=== PATIENT | male | born 1960 | race Caucasian/White ===

== ENCOUNTER 2016-05-14 21:03 | Emergency (ER) | payer OTHER ==
[~2016-05-14] VITALS: Ht 188 cm; Wt 85.0 kg
[2016-05-14 21:08] VITALS: BP 134/71; PULSE 67; RESP 18; TEMP 98.1; O2SAT 100
[2016-05-14] MEDS ORDERED: SODIUM CHLOR 0.9% 1000 ML INJ 1,000 ML IV ONE (21:15)
[2016-05-14] MEDS ORDERED: SODIUM CHLORIDE 0.9% FLUSH 5 ML FLUSH IVF PRN (21:15)
[2016-05-14] MEDS ORDERED: ONDANSETRON HCL 4 MG/2 ML VIAL IVP ONE (21:15)
--- NOTE | 2016-05-14 21:17 | PD ---
HPI Chief Complaint: Syncope/Near-Syncope Time Seen by Provider: 21:08 Travel History International Travel<30 days: No Contact w/Intl Traveler<30days: No Traveled to known affect area: No History of Present Illness HPI 55-year-old male presents via EMS for evaluation of nausea and lightheadedness. He reports that he was sitting in a pizza restaurant this afternoon with some friends but he wasn't hungry. He was feeling nauseous. He drank some Sprite but continued to feel nauseous so he walked outside. He felt lightheaded like he was going to pass out, he had some diaphoresis, and so he sat down. At this point in time he does feel better, continues to endorse mild lightheadedness and nausea but otherwise is asymptomatic. He denies any episodes of chest pain , palpitation, shortness of breath, abdominal pain, fevers or chills, diarrhea, headache. He denies any recent changes in diet. Denies any vertigo sensation. Denies any history of cardiac disease. He reports a history of high cholesterol for which she is prescribed niacin. Denies any history of hypertension, diabetes. He has no other complaints at this time. [facility] Past Medical History Narrative Medical Hyperlipidemia High Cholesterol: Yes Medical other: Yes (stress test 05/2015) Tetanus Vaccination: Unknown Influenza Vaccination: No Social History Alcohol Use: Yes (occasional ) Tobacco Use: No Substance Use: No Allergies-Medications (Allergen,Severity, Reaction): Coded Allergies: No Known Allergies (Unverified , 05/14/16) Reported Meds & Prescriptions Reported Meds & Active Scripts Active Zofran (Ondansetron HCl) 4 Mg Tab 4 Mg PO Q6HR PRN Review of Systems Except as stated in HPI: all other systems reviewed are Neg Physical Exam Narrative GENERAL: Pleasant well-developed well-nourished male in no acute distress resting comfortably in hospital bed. Vital signs reviewed. SKIN: Warm and dry. HEAD: Atraumatic. Normocephalic. EYES: Pupils equal and round extraocular muscles are intact. No scleral icterus. No injection or drainage. No nystagmus. ENT: No nasal bleeding or discharge. Mucous membranes pink and moist. NECK: Trachea midline. No JVD. CARDIOVASCULAR: Regular rate and rhythm. No murmur appreciated. RESPIRATORY: No accessory muscle use. Clear to auscultation. Breath sounds equal bilaterally. No crackles no wheezing. GASTROINTESTINAL: Abdomen soft, non-tender, nondistended. No guarding. MUSCULOSKELETAL: No obvious deformities. No edema. NEUROLOGICAL: Awake and alert. No obvious cranial nerve deficits. Motor grossly within normal limits. Normal speech. Data Data Last Documented VS Vital Signs Date Time Temp Pulse Resp B/P Pulse Ox O2 Delivery O2 Flow Rate FiO2 05/14/16 21:24 80 16 97 Room Air 05/14/16 21:08 98.1 134/71 Orders Electrocardiogram (05/14/16 21:15) Basic Metabolic Panel (Bmp) (05/14/16 21:15) Complete Blood Count With Diff (05/14/16 21:15) Magnesium (Mg) (05/14/16 21:15) Ecg Monitoring (05/14/16 21:15) Iv Access Insert/Monitor (05/14/16 21:15) Oximetry (05/14/16 21:15) Ondansetron Inj (Zofran Inj) (05/14/16 21:15) Sodium Chloride 0.9% Flush (Ns Flush) (05/14/16 21:15) Sodium Chlor 0.9% 1000 Ml Inj (Ns 1000 M (05/14/16 21:15) Orthostatic Vital Signs (05/14/16 21:19) Metoclopramide Inj (Reglan Inj) (05/14/16 22:45) Labs Laboratory Tests Test 05/14/16 21:20 White Blood Count 15.8 TH/MM3 Red Blood Count 5.11 MIL/MM3 Hemoglobin 16.7 GM/DL Hematocrit 47.3 % Mean Corpuscular Volume 92.6 FL Mean Corpuscular Hemoglobin 32.6 PG Mean Corpuscular Hemoglobin 35.3 % Concent Red Cell Distribution Width 13.2 % Platelet Count 223 TH/MM3 Mean Platelet Volume 8.6 FL Neutrophils (%) (Auto) 88.2 % Lymphocytes (%) (Auto) 7.0 % Monocytes (%) (Auto) 4.1 % Eosinophils (%) (Auto) 0.6 % Basophils (%) (Auto) 0.1 % Neutrophils # (Auto) 13.9 TH/MM3 Lymphocytes # (Auto) 1.1 TH/MM3 Monocytes # (Auto) 0.6 TH/MM3 Eosinophils # (Auto) 0.1 TH/MM3 Basophils # (Auto) 0.0 TH/MM3 CBC Comment DIFF FINAL Differential Comment Sodium Level 142 MEQ/L Potassium Level 4.3 MEQ/L Chloride Level 105 MEQ/L Carbon Dioxide Level 30.4 MEQ/L Anion Gap 7 MEQ/L Blood Urea Nitrogen 22 MG/DL Creatinine 1.26 MG/DL Estimat Glomerular Filtration 60 ML/MIN Rate Random Glucose 123 MG/DL Calcium Level 9.1 MG/DL Magnesium Level 2.1 MG/DL MDM Medical Decision Making Medical Screen Exam Complete: Yes Emergency Medical Condition: Yes Medical Record Reviewed: Yes Interpretation(s) EKG sinus rhythm, normal intervals, isolated T-wave inversion in V1, no ST changes, no Brugada, no [id number], no prolonged QT Differential Diagnosis Nausea, gastroenteritis, dehydration, hypoglycemia, electrolyte abnormality, vertigo, subarachnoid hemorrhage, pulmonary embolism, acute coronary syndrome, arrhythmia Narrative Course 55-year-old male who developed nausea while sitting in a pizza restaurant, became lightheaded when walking outside. He feels somewhat better now. He had no syncope, no vertigo, no chest pain or shortness of breath or palpitations. His vital signs are stable on examination. IV established, basic lab work has been ordered, the patient will be placed on ECG monitoring, 12-lead EKG was obtained. The patient was given IV fluids and Zofran. The patient had one episode of vomiting shortly after arrival prior to Zofran administration. He vomited up his lunch which he reports was salad from a salad bar at a [employer] restaurant. I suspect early gastroenteritis as the etiology of this patient's symptoms. He continues to deny any abdominal pain or diarrhea or chest pain. 2235: Upon reexamination the patient does feel significantly improved, slight residual nausea. No additional vomiting, no new symptoms. The patient's labwork is been reviewed. He has mild leukocytosis, BUN mildly elevated at when he 2. Plan is to discharge the patient home with Zofran to use as needed for nausea, advance diet slowly as tolerated. He is encouraged to return for any new or worsening symptoms such as chest pain, severe headache, abdominal pain, intractable vomiting. He is agreeable with this plan. Diagnosis Primary Impression: Gastroenteritis Additional Instructions: Zofran as needed for nausea. Slowly advance diet as tolerated. Follow-up with primary care physician as needed. Return for any new or worsening symptoms. Med/Other Pt SpecificInfo: Prescription(s) given Scripts Ondansetron (Zofran)4 Mg Tab4 Mg PO Q6HR PRN (NAUSEA OR VOMITING) #20 TAB Ref 0 Prov:Lilo Bush MD 05/14/16 Disposition: 01 DISCHARGE HOME Condition: Stable Gary Gibbons May 14, 2016 21:17
[2016-05-14 21:24] VITALS: PULSE 80; RESP 16; O2SAT 97
[2016-05-14 21:30] VITALS: BP_SYST 123; BP_SYST 132; BP_SYST 145; BP_DIAS 70; BP_DIAS 74; BP_DIAS 77; RESP 16
--- NOTE | 2016-05-14 21:51 | PD ---
Data Data Last Documented VS Vital Signs Date Time Temp Pulse Resp B/P Pulse Ox O2 Delivery O2 Flow Rate FiO2 05/14/16 21:24 80 16 97 Room Air 05/14/16 21:08 98.1 134/71 Orders Electrocardiogram (05/14/16 21:15) Basic Metabolic Panel (Bmp) (05/14/16 21:15) Complete Blood Count With Diff (05/14/16 21:15) Magnesium (Mg) (05/14/16 21:15) Ecg Monitoring (05/14/16 21:15) Iv Access Insert/Monitor (05/14/16 21:15) Oximetry (05/14/16 21:15) Ondansetron Inj (Zofran Inj) (05/14/16 21:15) Sodium Chloride 0.9% Flush (Ns Flush) (05/14/16 21:15) Sodium Chlor 0.9% 1000 Ml Inj (Ns 1000 M (05/14/16 21:15) Orthostatic Vital Signs (05/14/16 21:19) MDM Supervised Visit with ATIYA: Yes Narrative Course I, Dr. Bush, have reviewed the advance practice practioner's documentation and am in agreement, met with the patient face to face, made the diagnosis, and the medical decision making was done by me. *My assessment and Findings: 55-year-old healthy male here with presyncopal episode while eating pizza at a restaurant, slight nauseousness, lightheadedness and near-syncope. No syncopal episode. Denies any chest pain, shortness of breath, palpitations. No history of cardiac disease. No seizure disorder history he did not bite his tongue or lose consciousness, urinary incontinence. Patient is symptom-free at this time after receiving antiemetics here in the ED. Regular rate and rhythm, clear to auscultation bilaterally, abdominal examination is benign. Differential includes arrhythmia, electrolyte abnormality, symptomatic anemia, unlikely ACS or PE. Twelve-lead EKG unremarkable. Will obtain basic labs for hopeful disposition home if negative. Scripts No Active Prescriptions or Reported Meds Lilo Bush MD May 14, 2016 21:51
[2016-05-14 22:15] LABS: AUTOMATED NEUTROPHIL # 13.9 TH/MM3 (1.8-7.7); BASOPHIL % 0.1 % (0.0-2.0); EOSINOPHIL # 0.1 TH/MM3 (0-0.4); EOSINOPHIL % 0.6 % (0.0-4.0); HEMATOCRIT 47.3 % (39.0-51.0); HEMO FLAGS DIFF FINAL; LYMPHOCYTE # 1.1 TH/MM3 (1.0-4.8); MEAN CELL VOLUME 92.6 FL (80.0-100.0); MEAN CORPUSCULAR HEMOGLOBIN 32.6 PG (27.0-34.0); MEAN CORPUSCULAR HGB CONC 35.3 % (32.0-36.0); MONO % 4.1 % (0.0-8.0); NEUT % 88.2 % (16.0-70.0); PLATELET COUNT 223 TH/MM3 (150-450); RED BLOOD COUNT 5.11 MIL/MM3 (4.50-5.90); RED CELL DISTRIBUTION WIDTH 13.2 % (11.6-17.2); WHITE BLOOD COUNT 15.8 TH/MM3 (4.0-11.0)
[2016-05-14 22:21] LABS: BICARBONATE 30.4 MEQ/L (21.0-32.0); MAGNESIUM 2.1 MG/DL (1.5-2.5); POTASSIUM 4.3 MEQ/L (3.5-5.1)
[2016-05-14] MEDS ORDERED: ZOFR4TAB PO (22:37)
[2016-05-14] MEDS ORDERED: METOCLOPRAMIDE HCL 10 MG/2 ML VIAL IV PUSH ONE (22:45)
--- NOTE | 2016-05-16 11:49 | EKG ---
Date Performed: 05/14/2016 Time Performed: 21:13:11 PTAGE: 55 years EKG: Sinus rhythm WITH SINUS ARRHYTHMIA NORMAL ECG NO PREVIOUS TRACING DOCTOR: Robert Hernandez Interpretating Date/Time 05/16/2016 11:47:39
== END 2016-05-15 00:51 | disposition home or self-care (01) ==
LOC: NEPE 21:03
DX: K52.9 Noninfective gastroenteritis and colitis, unspecified (principal); E78.00 Pure hypercholesterolemia, unspecified
CPT/HCPCS: 80048; 83735; 85025; 93005; 96361; 96374; 96375; 99284; J2405; J2765; J7030